=== PATIENT | male | born 2005 | race Two or more races ===

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

== ENCOUNTER 2025-06-15 11:57 | Emergency (ER) | payer SELFPAY ==
[~2025-06-15] VITALS: Ht 185.4 cm; Wt 111.4 kg
[2025-06-15 12:00] VITALS: TEMP 98.2
[2025-06-15 14:20] VITALS: BP 132/77; PULSE 76; RESP 18; O2SAT 99
== END 2025-06-15 14:33 | disposition home or self-care (01) ==
LOC: EMS 11:59
DX: H72.92 Unspecified perforation of tympanic membrane, left ear (principal); Z91.013 Allergy to seafood
CPT/HCPCS: 99282; Z7502

== ENCOUNTER 2025-07-11 13:35 | Emergency (ER) | payer SELFPAY ==
[~2025-07-11] VITALS: Ht 182.9 cm; Wt 100.0 kg
[2025-07-11] MEDS: CEPHALEXIN MONOHYDRATE 500 MG CAPSULE PO ONE (14:15)
[2025-07-11] MEDS: SULFAMETHOX/TRIMETH DS 800-160 MG/TABLET PO ONE (14:16)
[2025-07-11] MEDS: HYDROCODONE/ACETAMINOPHEN 5-325 MG TABLET PO ONE (14:16)
[2025-07-11] MEDS: LIDOCAINE 1%/EPI 1:200,000/PF 10 ML VIAL ID ONE (14:16)
[2025-07-11 14:49] VITALS: BP 116/90; PULSE 103; RESP 18; TEMP 97.9; O2SAT 99
[2025-07-11] MEDS ORDERED: CEPH-558 PO (14:51)
[2025-07-11] MEDS ORDERED: TRAM50TA5 PO (14:51)
[2025-07-11] MEDS ORDERED: SULF-261 PO (14:51)
== END 2025-07-11 15:30 | disposition home or self-care (01) ==
LOC: EMS 13:41
DX: L05.01 Pilonidal cyst with abscess (principal); Z91.013 Allergy to seafood
CPT/HCPCS: 10080; 99284; J3490

== ENCOUNTER 2025-07-13 16:59 | Emergency (ER) | payer SELFPAY ==
[~2025-07-13] VITALS: Ht 182.9 cm; Wt 90.9 kg
[~2025-07-13 16:59] MED LIST: CEPH-558 PO; SULF-261 PO; TRAM50TA5 PO
[2025-07-13 17:08] VITALS: BP 105/89; PULSE 68; RESP 18; TEMP 98; O2SAT 99
== END 2025-07-13 18:04 | disposition home or self-care (01) ==
LOC: EMS 16:59
DX: L05.01 Pilonidal cyst with abscess (principal); Z79.899 Other long term (current) drug therapy
CPT/HCPCS: 99281; Z7502

== ENCOUNTER 2025-07-17 13:40 | Emergency (ER) | payer SELFPAY ==
[~2025-07-17] VITALS: Ht 185.4 cm; Wt 90.9 kg
[2025-07-17 13:43] VITALS: TEMP 97.2
[2025-07-17 14:20] VITALS: BP 123/79; PULSE 78; RESP 18; O2SAT 97
== END 2025-07-17 14:21 | disposition home or self-care (01) ==
LOC: EMS 13:47
DX: Z48.817 Encounter for surgical aftercare following surgery on the skin and subcutaneous tissue (principal); Z91.013 Allergy to seafood
CPT/HCPCS: 99281; Z7502